=== PATIENT | male | born 1940 | race Caucasian/White ===

== ENCOUNTER 2018-06-07 11:29 | Inpatient (IN) ==
--- NOTE | 2018-06-07 15:23 | History & Physical Report ---
Date of Service June 07, 2018 Assessment & Plan (1) CHF exacerbation: 77yo gentleman with a PMHx of CHF, questionable COPD, TRUONG on CPAP, A-fib treated with coumadin, DMII, MIx2 and CABGx4, and placement of a defibrillator who presents in acute on chronic CHF and acute renal injury. -One dose 40mg Lasix given at [facility]. Additional 40mg IV given here -Continue home lasix -EKG repeat ordered for heart block history -Echo ordered since unsure when his last was and to determine the nature of his CHF -Daily weights with I/Os check -PT/OT (2) COPD (chronic obstructive pulmonary disease): -questionable history as daughter says they were told that he does not have this diagnosis -No evidence of COPD exacerbation as xray clear. No indication for steroids or ipratropium. -Procalcitonin ordered. Based on results may get a CT. -However, on 2 L of oxygen at home, could be to help with CHF -History of smoking for 30yrs, 2ppd. Quit in 1987 -Will continue to supplement oxygen and wean as tolerated. (3) HOWARD (acute kidney injury): -BMP trend qAM -UA reordered -Will attempt to retrieve old labs from PCP to confirm baseline creatinine. -Will hold nephrotoxic meds (Metformin, Lisinopril) (4) Anemia: FOBT NEGATIVE CBC qAM for h/h trend. Threshold of 7 for transfusion, sooner if symptomatic (5) Diabetes: Hold metformin in setting of HOWARD Insulin sliding scale (6) Atrial fibrillation: -On coumadin -INR supratherapeutic so will hold for 1 day (7) Supratherapeutic INR: -as above, will hold coumadin for 1 day DVT Prophylaxis: Warfarin FEN/GI: Heart healthy-low sodium/ DMII Dispo: Discharge home pending resolution of symptoms History of Present Illness Chief Complaint: SOB Primary Care Provider: Calisara Oreilly Mr. Echavarria is a 77yo gentleman with a PMHx of CHF, questionable COPD, TRUONG on CPAP, A-fib treated with coumadin, DMII, MIx2 and CABGx4, and placement of a defibrillator who says that he was in his usual state of health when he had a sinus infection last Sunday that progressively got worse with SOB, cough productive of sputum and subjective fevers and chills. He usually wears 2L of O2 at home but called his daughter last night stating that he was having significant SOB even with his 2L. Does not adjust the volume so he is not sure how much O2 he actually required last night. His daughter then called the ambulance and he was taken to [facility]. Of note, daughter states that he has been eating an increased amount of canned soup over the past few days while he has been sick. [facility] Course: He was given a Duoneb that helped with his breathing, as well as a dose of Rocephin and 40mg of Lasix. A chest xray showed no acute changes, an EKG showed first degree heart block and a Flu PCR was negative. He was found to be in acute renal failure with a creatinine of 2.0 where his baseline was 1.4 -1.6. He had an anemia with a hemoglobin of 9. FOBT negative. His INR was 3.4. He was transferred to [facility] for further workup of his symptoms. Allergies Allergy/AdvReac Type Severity Reaction Status Date / Time No Known Allergies Allergy Unverified 06/07/18 14:38 Home Medications Home Medications Medication Instructions Recorded Confirmed Type carvedilol 06/07/18 History furosemide 06/07/18 History glimepiride 06/07/18 History insulin glargine [Lantus U-100 06/07/18 History Insulin] insulin regular human [Humulin R 06/07/18 History Regular U-100 Insuln] isosorbide mononitrate 30 mg PO DAILY 06/07/18 06/07/18 History lisinopril 06/07/18 History warfarin 06/07/18 History Past Med/Surg History Medical History Arthritis CHF (congestive heart failure) COPD (chronic obstructive pulmonary disease) Cardiac defibrillator in place Depression Diabetes Enlarged prostate HTN (hypertension) Heart attack On home O2 2L at night Surgical History H/O neck surgery History of back surgery Hx of CABG x4 Social History Current Living Situation: Alone current occupational status: retired Other Information That Helps Us Care for You: No Feels Safe at Home: Yes Safety Concerns: Feels Safe At This Time Smoking Status: Former smoker Smoking End Date: quit in 1987 Second Hand Exposure: No Hx Alcohol Use: No Hx Substance Use: No Beliefs That Will Affect Care: None Preferred Language: [place] Communication Ability: Effective Review of Systems Constitutional: + fever, + chills, + fatigue and + anorexia Eyes: no worsening vision Ear, Nose, Mouth, Throat: no hearing loss, no dizziness and no sore throat Respiratory: + cough, + chest congestion, + dyspnea and + dyspnea on exertion; no hemoptysis Cardiovascular: + edema; no chest pain and no palpitations Gastrointestinal: + blood in stools (bright red believed to be associated with hemorrhoids); no nausea and no vomiting Genitourinary (Male): + difficulty urinating and + decreased urination Neurologic: no headache(s) Physical Exam 2 Vital Signs (Past 24 Hours): Last Vital Signs Temp 36.3 C L 06/07/18 14:12 Pulse 79 06/07/18 14:12 Resp 20 06/07/18 14:12 BP 96/60 L 06/07/18 14:45 Pulse Ox 91 06/07/18 14:12 General: Alert, oriented. No acute distress HEENT: NC/AT, PERRL, EOMI, oropharynx moist. Chest: Nontender to palpation. CV: RRR, Normal s1, s2. No murmurs appreciated Resp: Breath sounds decreased but clear bilaterally, no increased effort of breathing. No crackles/rhonchi/rales. Abdomen: BS+. Soft, nontender, mildly distended. No guarding. No organomegaly appreciated. Extremities: Significant edema in lower extremities bilaterally. Results & Data Laboratory Results Laboratory Results - last 24 hr 06/07/18 16:13 POC Glucose 184 H Medications Administered Home Medications carvedilol 06/07/18 [History] furosemide 06/07/18 [History] glimepiride 06/07/18 [History] insulin glargine [Lantus U-100 Insulin] 06/07/18 [History] insulin regular human [Humulin R Regular U-100 Insuln] 06/07/18 [History] isosorbide mononitrate 30 mg PO DAILY 06/07/18 [History Confirmed 06/07/18] lisinopril 06/07/18 [History] warfarin 06/07/18 [History] Active Medications Acetaminophen (Tylenol) 650 mg PO Q4H PRN PRN Reason: Pain or Fever Stop: 07/07/18 16:35 Al Hydrox/Mg Hydrox/Simethicone (Maalox) 15 ml PO Q4H PRN PRN Reason: Dyspepsia Stop: 07/07/18 16:35 Carvedilol (Coreg) 3.125 mg PO BID [facility] Stop: 07/07/18 20:59 Furosemide (Lasix) 40 mg PO QAM [facility] Stop: 07/08/18 08:59 Insulin Aspart (Novolog Flexpen) 0 units SC ACHS [facility] Stop: 07/07/18 20:59 Isosorbide Mononitrate (Imdur Extended Rel) 30 mg PO DAILY [facility] Stop: 07/08/18 08:59 Magnesium Hydroxide (Milk Of Magnesia) 30 ml PO Q12H PRN PRN Reason: Constipation Stop: 07/07/18 16:35 Ondansetron HCl (Zofran) 4 mg IV Q6H PRN PRN Reason: Nausea Stop: 07/07/18 16:35 Supervising Physician Co-Signing Physician Notes I personally examined the patient and verified all floyd points of history and exam, discussed case, and agree with decision making with Dr De Jesus. Feeling short of breath at home, had been eating a lot of soup, gaining weight and swelling. Feels better now Vitals noted, in general he is awake alert sitting up in no distress. HEENT normal cephalic atraumatic mucous members are moist. Skin shows no rashes no pallor or icterus. Breathing shows bibasilar rales otherwise clear. He has edema Dyspneaacute on chronic CHF, I suspect systolic based on his history although I do not yet have records to corroborate this. Diuresis, check echo, follow clinically, educate on sodium. Elevated creatininehe is reported to have a baseline creatinine around 1, although I am not quite sure when this was checked or how reliable this information is. It is possible that he is at his baseline, it is also quite possible if there is an acute renal insufficiency it relates to his acute on chronic CHF. Follow with diuresis. Possible COPDhis exam and history seems to fit much more with acute CHF, so while he may have COPD, this does not appear to be acute Coronary artery diseaseclinically appears to be stable continue his home meds Anemiauncertain baseline follow DVT prophylaxisCoumadin Resident Activity Tracking Resident Involvement: Resident Care Provided Care Provided: Adult [facility]
[2018-06-07] MEDS ORDERED: ONDANSETRON INJ 2 MG/ML 2 ML VIAL IV PRN (16:36)
[2018-06-07] MEDS ORDERED: MAGNESIUM HYDROXIDE SUSP 30 ML UDC PO PRN (16:36)
[2018-06-07] MEDS ORDERED: ACETAMINOPHEN 325 MG TAB PO PRN (16:36)
[2018-06-07] MEDS ORDERED: ALUMINUM/MAGNESIUM SUSP 30 ML UDC PO PRN (16:36)
[2018-06-07] MEDS ORDERED: FUROSEMIDE 40 MG in SYRINGE 0 ML IV ONE (17:47)
[2018-06-07 19:14] LABS: Appearance Urine Clear (Clear); Bacteria Urine Automated Negative (Negative); Bilirubin Urine Negative (Negative); Blood Urine Negative (Negative); Color Urine Yellow; Glucose Urine UA Negative (Negative); Ketones Urine Negative (Negative); Leukocyte Esterase Urine 1+ (Negative); Nitrite Urine Negative (Negative); Protein Urine Negative (Negative); RBC Urine Automated 0-4 /hpf (0-4); Specific Gravity Urine 1.012 (1.000-1.030); Urobilinogen Urine Negative (Negative)
[2018-06-07] MEDS: CARVEDILOL 3.125 MG TAB PO SCH (20:44)
[2018-06-07] MEDS: INSULIN ASPART 100 UNITS/ML 3 ML PEN SC SCH (20:44)
[2018-06-08] MEDS: ISOSORBIDE MONO EXTENDED REL 30 MG TABCR PO SCH (07:46)
[2018-06-08] MEDS: INSULIN ASPART 100 UNITS/ML 3 ML PEN SC SCH ×4 (07:48→21:39)
[2018-06-08] MEDS: CARVEDILOL 3.125 MG TAB PO SCH (07:51)
[2018-06-08] MEDS: FUROSEMIDE 40 MG TAB PO SCH (07:51)
[2018-06-08 08:01] LABS: Basophils # (auto) 0.12 K/uL (0-0.2); Basophils % (auto) 1.5 %; Eosinophils # (auto) 0.34 K/uL (0-0.5); Eosinophils % (auto) 4.3 %; Hematocrit (blood only) 30.5 % (42-52); Hemoglobin 9.9 g/dL (14.0-18.0); Immature Granulocytes # (auto) 0.16 K/uL (0.00-0.02); Lymphocytes # (auto) 1.84 K/uL (1.2-3.4); Lymphocytes % (auto) 23.1 %; Mean Corpuscular Hgb Conc 32.5 g/dL (32-36); Mean Corpuscular Volume 80.3 fL (80-100); Monocytes # (auto) 0.88 K/uL (0.11-0.59); Neutrophils # (auto) 4.63 K/uL (1.4-6.5); Neutrophils % (auto) 58.1 %; Platelet Count 309 K/uL (130-400); RDW Coefficient of Variation 15.8 % (11.5-14.5); RDW Standard Deviation 46.5 fL (36.4-46.3); White Blood Count 7.97 K/uL (4.8-10.8)
[2018-06-08 08:07] LABS: INR 3.4 (0.9-1.1); Prothrombin Time 31.8 Seconds (9.0-12.0)
[2018-06-08 08:28] LABS: BUN Creatinine Ratio 21.3 (10-20); Calcium 8.5 mg/dl (8.5-10.1); Est GFR (African American) 39.3; Est GFR (Non-African American) 33.9
--- NOTE | 2018-06-08 12:58 | Family Medicine Progress Note ---
Date of Service June 08, 2018 Assessment & Plan (1) CHF exacerbation: 77yo gentleman with a PMHx of CHF, questionable COPD, TRUONG on CPAP, A-fib treated with coumadin, DMII, MIx2 and CABGx4, and placement of a defibrillator who presents in acute on chronic CHF and acute renal injury. -CHF exacerbation likely due to the increased salt consumption from soup while sick. -Continue home lasix -Echo shows diastolic heart failure, EF 50-55% -Daily weights with I/Os check -PT/OT (2) COPD (chronic obstructive pulmonary disease): -questionable history as daughter says they were told that he does not have this diagnosis -No evidence of COPD exacerbation as xray clear. No indication for steroids or ipratropium. -Procalcitonin normal. No indication for CT. -However, on 2 L of oxygen at baseline at home, could be to help with CHF -History of smoking for 30yrs, 2ppd. Quit in 1987 -Will continue to supplement oxygen and wean as tolerated. (3) HOWARD (acute kidney injury): -BMP trend qAM -UA unremarkable -Will attempt to retrieve old labs from PCP to confirm baseline creatinine. -Will hold nephrotoxic meds (Metformin, Lisinopril) (4) Anemia: STABLE FOBT NEGATIVE CBC qAM for h/h trend. Threshold of 7 for transfusion, sooner if symptomatic (5) Diabetes: Hold metformin in setting of HOWARD Insulin sliding scale (6) Atrial fibrillation: -On coumadin -INR supratherapeutic at 3.4 today so will continue to hold for 1 additional day (7) Supratherapeutic INR: -as above, will hold coumadin for 1 more day DVT Prophylaxis: Warfarin FEN/GI: Heart healthy-low sodium/ DMII Dispo: Discharge home pending resolution of symptoms Supervising Physician Co-Signing Physician Notes I personally examined the patient and verified all floyd points of history and exam, discussed case, and agree with decision making with Dr De Jesus. His breathing feels better at rest, but he did note a lot of orthopnea through the night Vitals noted, in general he is awake alert sitting up in no distress. HEENT normal cephalic atraumatic mucous members are moist. Skin shows no rashes no pallor or icterus. Lungs show improved but still present bibasilar rales, no rhonchi no wheeze no accessory muscle use Dyspneaacute on chronic CHF, awaiting echo, most likely systolic. Probably brought on by the sodium content of the superior is eating. Continue diuresis as best his blood pressure will allow, given that he still got orthopnea and some rales I suspect we still have pulmonary edema to clear Elevated creatininehe is reported to have a baseline creatinine around 1, it is not clear how reliable this baseline is. His creatinine is improving with diuresis, continue to follow Possible COPDacutely his exam and history seems to fit much more with acute CHF , so while he may have COPD, this does not appear to be acute, it would warrant outpatient PFTs if not done Coronary artery diseaseasymptomatic, clinically appears to be stable continue his home meds Anemiauncertain baseline follow, this is been stable DVT prophylaxisCoumadin Subjective Pt states that he feels better overall and when compared to hospital presentation, however he had orthopnea last night in addition to polyuria. No exertional dyspnea. Denies chest pain, palps, N/V, diarrhea or constipation. Review of Systems All systems reviewed & are unremarkable except as noted in HPI & below Physical Exam 2 Vital Signs (Past 24 Hours): Last Vital Signs Temp 36.4 C L 06/08/18 12:06 Pulse 84 06/08/18 12:06 Resp 16 06/08/18 12:06 BP 101/64 06/08/18 12:06 Pulse Ox 95 06/08/18 12:06 General: Alert, oriented. No acute distress. On O2 HEENT: NC/AT, PERRL, EOMI, oropharynx moist. Chest: Nontender to palpation. CV: RRR, Normal s1, s2. No murmurs appreciated Resp: Breath sounds decreased with basal crackles. no increased effort of breathing. Abdomen: BS+. Soft, nontender, mildly distended. No guarding. No organomegaly appreciated. Extremities: Significant edema in lower extremities bilaterally. Results & Data Laboratory Results Laboratory Results - last 24 hr 06/07/18 06/07/18 06/07/18 16:13 17:57 18:42 WBC RBC Hgb Hct MCV MCH MCHC RDW Std Deviation RDW Coeff of Antony Plt Count MPV Immature Gran % (Auto) Neut % (Auto) Lymph % (Auto) [place] % (Auto) Eos % (Auto) Baso % (Auto) Immature Gran # (Auto) Neut # (Auto) Lymph # (Auto) [place] # (Auto) Eos # (Auto) Baso # (Auto) PT INR Sodium Potassium Chloride Carbon Dioxide Anion Gap BUN Creatinine Est Cr Clr Drug Dosing Est GFR ( Amer) Est GFR (Non-Af Amer) BUN/Creatinine Ratio Glucose POC Glucose 184 H Calcium Procalcitonin 0.18 Urine Color Yellow Urine Appearance Clear Urine pH 5.0 Ur Specific [place] 1.012 Urine Protein Negative Urine Glucose (UA) Negative Urine Ketones Negative Urine Blood Negative Urine Nitrite Negative Urine Bilirubin Negative Urine Urobilinogen Negative Ur Leukocyte Esterase 1+ H Urine WBC (Auto) 1-5 Urine RBC (Auto) 0-4 U Hyaline Cast (Auto) 1-5 U Epithel Cells (Auto) 10-20 H Urine Bacteria (Auto) Negative 06/07/18 06/08/18 06/08/18 20:22 06:47 06:47 WBC 7.97 RBC 3.80 L Hgb 9.9 L Hct 30.5 L MCV 80.3 MCH 26.1 MCHC 32.5 RDW Std Deviation 46.5 H RDW Coeff of Antony 15.8 H Plt Count 309 MPV 8.0 Immature Gran % (Auto) 2.0 Neut % (Auto) 58.1 Lymph % (Auto) 23.1 [place] % (Auto) 11.0 Eos % (Auto) 4.3 Baso % (Auto) 1.5 Immature Gran # (Auto) 0.16 H Neut # (Auto) 4.63 Lymph # (Auto) 1.84 [place] # (Auto) 0.88 H Eos # (Auto) 0.34 Baso # (Auto) 0.12 PT INR Sodium 134 L Potassium 4.0 Chloride 98 Carbon Dioxide 29 Anion Gap 7.0 BUN 40 H Creatinine 1.87 H Est Cr Clr Drug Dosing 43.0 Est GFR ( Amer) 39.3 Est GFR (Non-Af Amer) 33.9 BUN/Creatinine Ratio 21.3 H Glucose 153 H POC Glucose 234 H Calcium 8.5 Procalcitonin Urine Color Urine Appearance Urine pH Ur Specific [place] Urine Protein Urine Glucose (UA) Urine Ketones Urine Blood Urine Nitrite Urine Bilirubin Urine Urobilinogen Ur Leukocyte Esterase Urine WBC (Auto) Urine RBC (Auto) U Hyaline Cast (Auto) U Epithel Cells (Auto) Urine Bacteria (Auto) 02/09/19 02/09/19 02/09/19 06:47 07:35 11:40 WBC RBC Hgb Hct MCV MCH MCHC RDW Std Deviation RDW Coeff of Antony Plt Count MPV Immature Gran % (Auto) Neut % (Auto) Lymph % (Auto) [place] % (Auto) Eos % (Auto) Baso % (Auto) Immature Gran # (Auto) Neut # (Auto) Lymph # (Auto) [place] # (Auto) Eos # (Auto) Baso # (Auto) PT 31.8 H INR 3.4 H Sodium Potassium Chloride Carbon Dioxide Anion Gap BUN Creatinine Est Cr Clr Drug Dosing Est GFR ( Amer) Est GFR (Non-Af Amer) BUN/Creatinine Ratio Glucose POC Glucose 169 H 188 H Calcium Procalcitonin Urine Color Urine Appearance Urine pH Ur Specific [place] Urine Protein Urine Glucose (UA) Urine Ketones Urine Blood Urine Nitrite Urine Bilirubin Urine Urobilinogen Ur Leukocyte Esterase Urine WBC (Auto) Urine RBC (Auto) U Hyaline Cast (Auto) U Epithel Cells (Auto) Urine Bacteria (Auto) Medications Administered Home Medications carvedilol 3.125 mg PO BID 06/07/18 [History Confirmed 06/07/18] furosemide 40 mg PO DAILY 06/07/18 [History Confirmed 06/07/18] glimepiride 4 mg PO DAILY 06/07/18 [History Confirmed 06/07/18] insulin glargine [Lantus U-100 Insulin] 60 units SUBCUT BID 06/07/18 [History Confirmed 06/07/18] insulin regular human [Humulin R Regular U-100 Insuln] 06/07/18 [History] isosorbide mononitrate 30 mg PO DAILY 06/07/18 [History Confirmed 06/07/18] lisinopril 2.5 mg PO DAILY 06/07/18 [History Confirmed 06/07/18] warfarin 8 mg PO DAILY 06/07/18 [History Confirmed 06/07/18] Active Medications Acetaminophen (Tylenol) 650 mg PO Q4H PRN PRN Reason: Pain or Fever Stop: 07/07/18 16:35 Al Hydrox/Mg Hydrox/Simethicone (Maalox) 15 ml PO Q4H PRN PRN Reason: Dyspepsia Stop: 07/07/18 16:35 Carvedilol (Coreg) 3.125 mg PO BID [facility] Stop: 07/07/18 20:59 Last Admin: 06/08/18 07:51 Dose: Not Given Furosemide (Lasix) 40 mg PO QAM [facility] Stop: 07/08/18 08:59 Last Admin: 06/08/18 07:51 Dose: 40 mg Insulin Aspart (Novolog Flexpen) 0 units SC ACHS [facility] Stop: 07/07/18 20:59 Last Admin: 06/08/18 12:01 Dose: 10 units Isosorbide Mononitrate (Imdur Extended Rel) 30 mg PO DAILY [facility] Stop: 07/08/18 08:59 Last Admin: 06/08/18 07:46 Dose: 30 mg Magnesium Hydroxide (Milk Of Magnesia) 30 ml PO Q12H PRN PRN Reason: Constipation Stop: 07/07/18 16:35 Ondansetron HCl (Zofran) 4 mg IV Q6H PRN PRN Reason: Nausea Stop: 07/07/18 16:35
[2018-06-09 05:11] LABS: Basophils # (auto) 0.06 K/uL (0-0.2); Basophils % (auto) 0.7 %; Eosinophils # (auto) 0.33 K/uL (0-0.5); Eosinophils % (auto) 4.1 %; Immature Granulocytes # (auto) 0.26 K/uL (0.00-0.02); Immature Granulocytes % (auto) 3.2 %; Lymphocytes # (auto) 2.07 K/uL (1.2-3.4); Lymphocytes % (auto) 25.6 %; Mean Corpuscular Hgb Conc 33.3 g/dL (32-36); Mean Corpuscular Volume 79.2 fL (80-100); Mean Platelet Volume 7.7 fL (7.4-10.4); Monocytes # (auto) 0.95 K/uL (0.11-0.59); Monocytes % (auto) 11.7 %; Neutrophils # (auto) 4.42 K/uL (1.4-6.5); Neutrophils % (auto) 54.7 %; Platelet Count 273 K/uL (130-400); RDW Coefficient of Variation 15.5 % (11.5-14.5); RDW Standard Deviation 45.3 fL (36.4-46.3); Red Blood Count 3.79 M/uL (4.7-6.1); White Blood Count 8.09 K/uL (4.8-10.8)
[2018-06-09 05:22] LABS: INR 2.6 (0.9-1.1); Prothrombin Time 25.2 Seconds (9.0-12.0)
[2018-06-09 05:34] LABS: BUN Creatinine Ratio 19.5 (10-20); Calcium 8.6 mg/dl (8.5-10.1); Est GFR (African American) 40.3; Est GFR (Non-African American) 34.8; Potassium 4.2 mmol/L (3.5-5.1)
[2018-06-09] MEDS: FUROSEMIDE 40 MG TAB PO SCH (07:52)
[2018-06-09] MEDS: ISOSORBIDE MONO EXTENDED REL 30 MG TABCR PO SCH (07:52)
[2018-06-09] MEDS: INSULIN ASPART 100 UNITS/ML 3 ML PEN SC SCH ×2 (07:53→12:47)
[2018-06-09] MEDS ORDERED: WARFARIN SOD 4 MG TAB PO ONE (13:39)
--- NOTE | 2018-06-09 13:56 | Discharge Summary ---
Addendum entered and electronically signed by Sonia De Jesus MD 06/09/18 15: 14: Addendum (Blank) Addendum June 09, 2018 15:13 UPDATED DISCHARGE PLAN Discharge Items Patient Disposition: Home - Home Health Services Reason For Visit: CHF EXCERBATION, ANEMIA Discharge Diagnosis: CHF EXACERBATION Discharge Goals: Decrease discomfort and Therapeutic intervention Activity: Resume your previous activity Activity Comment: TOLERATED Non-emergency contact: Primary Care Provider Call non-emergency contact if: you have any medication questions, your symptoms worsen and you have a fever Follow-up/Referrals: Cali Oreilly [Primary Care Provider] - Diet: Heart Healthy and Low Sodium (2gm) Addtl Provider Instructions: You were admitted because you had an exacerbation of your congestive heart failure as well some kidney dysfunction. You were treated with water pill and the medications that were putting stress on your kidneys were stopped. CHF Exacerbation -Please continue your home lasix -Please stop eating those canned soups as they likely caused you to get sick this time. -Please continue to do your home PT through the home services you were connected with on discharge. COPD -Please continue taking your home oxygen to help with your breathing, though you might actually require less. -Please followup with your doctor to have pulmonary function tests done so you can have a definite diagnosis. Acute Kidney Injury -Please have labwork done with the prescription you've been given on Sunday. -Please followup with your doctor for additional kidney function bloodwork in the next week to make sure you are back to baseline. You will be given a prescription for that. They can restart your Lisinopril and Metformin then which we stopped cause they were putting an extra stress on your kidney while you were sick. Anemia -Please followup with your doctor as your hemoglobin was low. They can continue to monitor it to ensure that it does not get to the point that you need a transfusion. Diabetes -Continue taking your insulin. Follow up with your doctor in the next week to determine whether you can restart your metformin after kidney bloodwork is done. Atiral Fibrillation/High INR -We restarted your coumadin before discharge. Please continue to take it as before at home. Please followup with your doctor in 1 week and take this paperwork with you. Please go to the nearest emergency room if you suddenly develop trouble breathing again, heart racing or chest pain. Prescriptions: Continue carvedilol 3.125 mg tablet 3.125 mg PO BID RF: 0 warfarin 4 mg tablet 8 mg PO DAILY RF: 0 furosemide 40 mg tablet 40 mg PO DAILY RF: 0 insulin regular human [Humulin R Regular U-100 Insuln] 100 unit/mL solution RF: 0 insulin glargine [Lantus U-100 Insulin] 100 unit/mL solution 60 units subcut BID RF: 0 isosorbide mononitrate 30 mg Tablet Extended Release 24 Hr 30 mg PO DAILY RF: 0 Discontinued glimepiride 4 mg tablet 4 mg PO DAILY RF: 0 lisinopril 2.5 mg tablet 2.5 mg PO DAILY RF: 0 Stand-Alone Forms: [facility] Discharge Orders: Discharge Order (Routine); Ordered 06/09/18 Ordered By: Sonia De Jesus Admission Data Admit Date/Time: 06/07/18 13:11 Attending Provider: Armani Moya Admit Provider: Moses Devi Primary Care Provider: Cali Oreilly Other Providers: Moses Devi Service: Telemetry Original Note: Date of Service June 09, 2018 Admission HPI Per Admitting Provider Mr. Echavarria is a 77yo gentleman with a PMHx of CHF, questionable COPD, TRUONG on CPAP, A-fib treated with coumadin, DMII, MIx2 and CABGx4, and placement of a defibrillator who says that he was in his usual state of health when he had a sinus infection last Sunday that progressively got worse with SOB, cough productive of sputum and subjective fevers and chills. He usually wears 2L of O2 at home but called his daughter last night stating that he was having significant SOB even with his 2L. Does not adjust the volume so he is not sure how much O2 he actually required last night. His daughter then called the ambulance and he was taken to [facility]. Of note, daughter states that he has been eating an increased amount of canned soup over the past few days while he has been sick. [facility] Course: He was given a Duoneb that helped with his breathing, as well as a dose of Rocephin and 40mg of Lasix. A chest xray showed no acute changes, an EKG showed first degree heart block and a Flu PCR was negative. He was found to be in acute renal failure with a creatinine of 2.0 where his baseline was 1.4 -1.6. He had an anemia with a hemoglobin of 9. FOBT negative. His INR was 3.4. He was transferred to [facility] for further workup of his symptoms. Admission Exam Per Admitting Provider General: Alert, oriented. No acute distress HEENT: NC/AT, PERRL, EOMI, oropharynx moist. Chest: Nontender to palpation. CV: RRR, Normal s1, s2. No murmurs appreciated Resp: Breath sounds decreased but clear bilaterally, no increased effort of breathing. No crackles/rhonchi/rales. Abdomen: BS+. Soft, nontender, mildly distended. No guarding. No organomegaly appreciated. Extremities: Significant edema in lower extremities bilaterally. Principal Diagnosis CHF EXACERBATION Discharge Exam General: Alert, oriented. No acute distress HEENT: NC/AT, PERRL, EOMI, oropharynx moist. Chest: Nontender to palpation. CV: RRR, Normal s1, s2. No murmurs appreciated Resp: Breath sounds decreased with faint crackles at bases, no increased effort of breathing. Abdomen: BS+. Soft, nontender, mildly distended. No guarding. No organomegaly appreciated. Extremities: Significant edema in lower extremities bilaterally. Discharge Data Allergies Allergy/AdvReac Type Severity Reaction Status Date / Time No Known Allergies Allergy Unverified 06/07/18 14:38 Hospital Course (1) CHF exacerbation: 77yo gentleman with a PMHx of CHF, questionable COPD, TRUONG on CPAP, A-fib treated with coumadin, DMII, MIx2 and CABGx4, and placement of a defibrillator who presents in acute on chronic CHF and acute renal injury. -CHF exacerbation likely due to the increased salt consumption from soup while sick. -Received one IV dose of 40mg Lasix -Continue home lasix -Echo shows diastolic heart failure, EF 50-55% -Daily weights with I/Os check -PT/OT--recommends home with home PT (2) COPD (chronic obstructive pulmonary disease): -questionable history as daughter says they were told that he does not have this diagnosis -No evidence of COPD exacerbation as xray clear. No indication for steroids or ipratropium. -recommend outpt PFTs -Procalcitonin normal. No indication for CT. -However, on 2 L of oxygen at baseline at home, could be to help with CHF -History of smoking for 30yrs, 2ppd. Quit in 1987 -Will continue to supplement oxygen and wean as tolerated. (3) HOWARD (acute kidney injury): -BMP trend qAM -UA unremarkable -Will attempt to retrieve old labs from PCP to confirm baseline creatinine. -Will hold nephrotoxic meds (Metformin, Lisinopril) (4) Anemia: STABLE FOBT NEGATIVE CBC qAM for h/h trend. Threshold of 7 for transfusion, sooner if symptomatic (5) Diabetes: Hold metformin in setting of HOWARD Insulin sliding scale (6) Atrial fibrillation: -On coumadin -Restarted before discharge (7) Supratherapeutic INR: -restarted -resolved at 2.6 now from 3.4 DVT Prophylaxis: Warfarin FEN/GI: Heart healthy-low sodium/ DMII Dispo: Discharge home pending resolution of symptoms Total Time Total Time Spent Total Time Spent (In Minutes): <30 Discharge Plan Discharge Items Patient Disposition: Home - Home Health Services Reason For Visit: CHF EXCERBATION, ANEMIA Discharge Diagnosis: CHF EXACERBATION Discharge Goals: Decrease discomfort and Therapeutic intervention Activity: Resume your previous activity Activity Comment: TOLERATED Non-emergency contact: Primary Care Provider Call non-emergency contact if: you have any medication questions, your symptoms worsen and you have a fever Follow-up/Referrals: Cali Oreilly [Primary Care Provider] - Diet: Heart Healthy and Low Sodium (2gm) Addtl Provider Instructions: You were admitted because you had an exacerbation of your congestive heart failure as well some kidney dysfunction. You were treated with water pill and the medications that were putting stress on your kidneys were stopped. CHF Exacerbation -Please continue your home lasix -Please stop eating those canned soups as they likely caused you to get sick this time. -Please continue to do your home PT through the home services you were connected with on discharge. COPD -Please continue taking your home oxygen to help with your breathing, though you might actually require less. -Please followup with your doctor to have pulmonary function tests done so you can have a definite diagnosis. Acute Kidney Injury -Please have labwork done with the prescription you've been given on Sunday. -Please followup with your doctor for additional kidney function bloodwork in the next week to make sure you are back to baseline. You will be given a prescription for that. They can restart your Lisinopril and Metformin then which we stopped cause they were putting an extra stress on your kidney while you were sick. Anemia -Please followup with your doctor as your hemoglobin was low. They can continue to monitor it to ensure that it does not get to the point that you need a transfusion. Diabetes -Continue taking your insulin. Follow up with your doctor in the next week to determine whether you can restart your metformin after kidney bloodwork is done. Atiral Fibrillation/High INR -We restarted your coumadin before discharge. Please continue to take it as before at home. Please followup with your doctor in 1 week and take this paperwork with you. Please go to the nearest emergency room if you suddenly develop trouble breathing again, heart racing or chest pain. Prescriptions: Continue carvedilol 3.125 mg tablet 3.125 mg PO BID RF: 0 warfarin 4 mg tablet 8 mg PO DAILY RF: 0 furosemide 40 mg tablet 40 mg PO DAILY RF: 0 insulin regular human 100 unit/mL solution RF: 0 insulin glargine 100 unit/mL solution 60 units subcut BID RF: 0 isosorbide mononitrate 30 mg Tablet Extended Release 24 Hr 30 mg PO DAILY RF: 0 Discontinued glimepiride 4 mg tablet 4 mg PO DAILY RF: 0 lisinopril 2.5 mg tablet 2.5 mg PO DAILY RF: 0 Stand-Alone Forms: [facility] Discharge Orders: Discharge Order (Routine); Ordered 06/09/18 Ordered By: Sonia De Jesus Admission Data Admit Date/Time: 06/07/18 13:11 Attending Provider: Armani Moya Admit Provider: Moses Devi Primary Care Provider: Cali Oreilly Other Providers: Moses Devi Service: Telemetry Other Interventions: Discharge Summary Assessment (RN) Last Done: 06/09/18 15:32 Supervising Physician Co-Signing Physician Notes I personally examined the patient and verified all floyd points of history and exam, discussed case, and agree with decision making with Dr De Jesus. Feels doing well enough to go home, breathing is doing better. Discussed medications and lab follow-up in depth. Patient expressed understanding, as did his daughter. Vitals noted, in general he is awake alert sitting up in no distress. HEENT normal cephalic atraumatic mucous members are moist. Skin shows no rashes no pallor or icterus. Lungs actually clear to auscultation bilaterally, rales are resolved, no rhonchi no wheezes good effort Dyspneaacute on chronic CHF, otherwise echo surprisingly good, probably diastolic despite our assumption he was going to have rather significant systolic failure. This was probably still brought on by the sodium content in the soupy was eating, he responded nicely to diuretics, and is stable to go home Elevated creatininehe is reported to have a baseline creatinine around 1, it is not clear how reliable this baseline is. His creatinine is improving with diuresis, he is stable for discharge, and we will ask for a repeat basic metabolic panel to be done in about 2-3 days. His PCP will assume care from there. Until his creatinine improves further, we will have his lisinopril and metformin on hold Possible COPDthis is not been an acute issue. He should have outpatient PFTs if they have not been done Coronary artery diseaseasymptomatic, clinically appears to be stable continue his home meds Anemiauncertain baseline follow, this is been stable, outpatient follow-up DVT prophylaxisCoumadin Is stable for home Resident Activity Tracking Resident Involvement: Resident Care Provided Care Provided: Adult Hospital Medicine
--- NOTE | 2018-06-09 15:12 | Discharge Summary ---
Date of Service June 09, 2018 Admission HPI Per Admitting Provider Mr. Echavarria is a 77yo gentleman with a PMHx of CHF, questionable COPD, TRUONG on CPAP, A-fib treated with coumadin, DMII, MIx2 and CABGx4, and placement of a defibrillator who says that he was in his usual state of health when he had a sinus infection last Sunday that progressively got worse with SOB, cough productive of sputum and subjective fevers and chills. He usually wears 2L of O2 at home but called his daughter last night stating that he was having significant SOB even with his 2L. Does not adjust the volume so he is not sure how much O2 he actually required last night. His daughter then called the ambulance and he was taken to [facility]. Of note, daughter states that he has been eating an increased amount of canned soup over the past few days while he has been sick. [facility] Course: He was given a Duoneb that helped with his breathing, as well as a dose of Rocephin and 40mg of Lasix. A chest xray showed no acute changes, an EKG showed first degree heart block and a Flu PCR was negative. He was found to be in acute renal failure with a creatinine of 2.0 where his baseline was 1.4 -1.6. He had an anemia with a hemoglobin of 9. FOBT negative. His INR was 3.4. He was transferred to [facility] for further workup of his symptoms. Discharge Data Allergies Allergy/AdvReac Type Severity Reaction Status Date / Time No Known Allergies Allergy Unverified 06/07/18 14:38 Discharge Plan Discharge Items Patient Disposition: Home - Home Health Services Reason For Visit: CHF EXCERBATION, ANEMIA Discharge Diagnosis: CHF EXACERBATION Discharge Goals: Decrease discomfort and Therapeutic intervention Activity: Resume your previous activity Activity Comment: TOLERATED Non-emergency contact: Primary Care Provider Call non-emergency contact if: you have any medication questions, your symptoms worsen and you have a fever Follow-up/Referrals: Cali Oreilly [Primary Care Provider] - Diet: Heart Healthy and Low Sodium (2gm) Addtl Provider Instructions: You were admitted because you had an exacerbation of your congestive heart failure as well some kidney dysfunction. You were treated with water pill and the medications that were putting stress on your kidneys were stopped. CHF Exacerbation -Please continue your home lasix -Please stop eating those canned soups as they likely caused you to get sick this time. -Please continue to do your home PT through the home services you were connected with on discharge. COPD -Please continue taking your home oxygen to help with your breathing, though you might actually require less. -Please followup with your doctor to have pulmonary function tests done so you can have a definite diagnosis. Acute Kidney Injury -Please have labwork done with the prescription you've been given on Sunday. -Please followup with your doctor for additional kidney function bloodwork in the next week to make sure you are back to baseline. You will be given a prescription for that. They can restart your Lisinopril and Metformin then which we stopped cause they were putting an extra stress on your kidney while you were sick. Anemia -Please followup with your doctor as your hemoglobin was low. They can continue to monitor it to ensure that it does not get to the point that you need a transfusion. Diabetes -Continue taking your insulin. Follow up with your doctor in the next week to determine whether you can restart your metformin after kidney bloodwork is done. Atiral Fibrillation/High INR -We restarted your coumadin before discharge. Please continue to take it as before at home. Please followup with your doctor in 1 week and take this paperwork with you. Please go to the nearest emergency room if you suddenly develop trouble breathing again, heart racing or chest pain. Prescriptions: Continue carvedilol 3.125 mg tablet 3.125 mg PO BID RF: 0 warfarin 4 mg tablet 8 mg PO DAILY RF: 0 furosemide 40 mg tablet 40 mg PO DAILY RF: 0 insulin regular human [Humulin R Regular U-100 Insuln] 100 unit/mL solution RF: 0 insulin glargine [Lantus U-100 Insulin] 100 unit/mL solution 60 units subcut BID RF: 0 isosorbide mononitrate 30 mg Tablet Extended Release 24 Hr 30 mg PO DAILY RF: 0 Discontinued glimepiride 4 mg tablet 4 mg PO DAILY RF: 0 lisinopril 2.5 mg tablet 2.5 mg PO DAILY RF: 0 Stand-Alone Forms: My [facility] Discharge Orders: Discharge Order (Routine); Ordered 06/09/18 Ordered By: Sonia De Jesus Admission Data Admit Date/Time: 06/07/18 13:11 Attending Provider: Armani Moya Admit Provider: Moses Devi Primary Care Provider: Cali Oreilly Other Providers: Moses Devi Service: Telemetry
== END 2018-06-09 16:23 | disposition home or self-care (01) | DRG 292 ==
LOC: 2N 13:11 → SUATTDRO 13:11